=== PATIENT | female | born 1955 | race Caucasian/White ===

== ENCOUNTER → 2016-07-16 | Outpatient (CLI) | payer OTHER ==
[2016-07-16 09:40] LABS: BASOPHILS # (AUTO) 0.02 10*3/UL; BASOPHILS % (AUTO) 0.6 % (0-1); EOSINOPHILS % (AUTO) 0.6 % (0-8); HEMATOCRIT 38.6 % (37.0-47.0); HEMOGLOBIN 12.6 g/dL (12.0-16.0); IMM GRAN % (AUTO) 0 % (0-5); IMM GRAN# (AUTO) 0 10*3/UL; LYMPHOCYTES # (AUTO) 1.06 10*3/uL; LYMPHOCYTES % (AUTO) 30.3 % (10-50); MEAN CORPUSCULAR HEMOGLOBIN 32.1 PG (27-31); MEAN CORPUSCULAR HGB CONC 32.6 g/dL (33-37); MEAN PLATELET VOLUME 9.4 FL (7.4-12.2); MONOCYTES # (AUTO) 0.48 10*3/UL (0.3-0.8); MONOCYTES % (AUTO) 13.7 % (5-15); NEUTROPHILS # (AUTO) 1.92 10*3/UL; NEUTROPHILS % (AUTO) 54.8 % (50-80); RDW COEFFICIENT OF VARIATION 13.8 % (11.5-14.5); RED BLOOD COUNT 3.93 10^6/uL (4.20-5.40)
[2016-07-16 09:45] LABS: PLATELET MORPHOLOGY COMMENT NORMAL MORPHOLOGY (NORM)
[2016-07-16 10:05] LABS: ASPARTATE AMINO TRANSFERASE 29 IU/L (8-39); BILIRUBIN,TOTAL 0.4 mg/dL (0.3-1.2); BLOOD UREA NITROGEN 13 mg/dL (7-22); BUN/CREATININE RATIO 21.66 (6-20); CALCIUM 9.6 mg/dL (8.7-10.7); CHLORIDE 104 meq/L (98-112); CREATININE 0.6 mg/dL (0.50-1.20); EST GLOMERULAR FILTRATION > 60 (>60 ml/min/1.73m(2)); GLUCOSE 83 mg/dL (78-110); POTASSIUM 3.6 meq/L (3.8-5.2); SODIUM 141 meq/L (135-145); TOTAL PROTEIN 6.1 g/dL (6.1-8.0)
== END ==
LOC: LAB 09:01
PROVIDERS: ATTEND Surgery
DX: C50.812 Malignant neoplasm of overlapping sites of left female breast (principal)
CPT/HCPCS: 36415; 80053; 85025; 86300

== ENCOUNTER 2016-07-24 06:52 | Day surgery (SDC) | payer OTHER ==
[~2016-07-24 06:52] MED LIST: LIDOCAINE W/ SODIUM BICARB 0.5 ML SYR ONE; Lactated Ringers 1,000 ML PRIMARY IV ONE; ceFAZolin Inj 2gm (Premix) 50 ML IV ONE
[2016-07-24] MEDS ORDERED: LIDOCAINE W/ SODIUM BICARB 0.5 ML SYR SUBD ONE (09:00)
[2016-07-24] MEDS ORDERED: Lactated Ringers 1,000 ML PRIMARY IV ONE (11:01)
[2016-07-24] MEDS ORDERED: fentaNYL Inj 250 MCG/5 ML VIAL ONE (11:03)
[2016-07-24] MEDS ORDERED: MIDAZOLAM 5 MG/1 ML ONE (11:03)
[2016-07-24] MEDS ORDERED: LIDOCAINE MPF 2% - 5 ML (20 MG/1 ML) ONE (11:04)
[2016-07-24] MEDS ORDERED: Sodium Chloride 0.9% vial 10 ML ONE (11:04)
[2016-07-24] MEDS ORDERED: BUPIVACAINE 0.5% W/ EPI - 10 ML VIAL ONE (11:26)
[2016-07-24] MEDS ORDERED: LIDOCAINE 2% 20 MG/ML - 20 ML VIAL ONE (11:26)
--- NOTE | 2016-07-24 11:31 | DI ---
NEEDLE LOCALIZATION FOR LEFT BREAST BIOPSY, 07/24/2016 8:40 AM: Clinical History: Biopsy proven breast cancer. Previous Exam: 01/04/2016. Between the diagnosis of breast cancer in December of 2015, and now, the david ent has undergone chemotherapy treatment. The tumor clinically is no longer palpable and mammographic ally is not identifiable with certainty. A "time out" session was performed to verify the patient's name and date of prior to informing the patient of the risks and benefits for this procedure. The left breast was prepped with ChloraPrep with Tint. The breast was then positioned for the needle localization procedure in the mammographic machine. A film was obtained for localization. 2, 7 cm long and 2, 9 cm long 21g Kopan's needles were then inserted to bracket the suspected area of interest based on the location of the mass seen on th e study from 01/04/2016. There is a needle marker related to the core biopsy procedure, but this needl e is located quite posteriorly at the 12:00 position and is located within fat tissue. A second film was obtained in an orthogonal position to verify position of the needles. The needles were adjusted a s necessary to be in proximity to the lesion. Prior to deployment of the hook wires, 0.1 cc of methyl julian blue was injected through each needle. The hook wires were then deployed and a final film was obt ained in the same position to verify position of the wires. After placement of the 4 wires but before a methylene blue was injected, the patient experienced an e pisode of vasovagal syncope that was treated by placing the patient in Trendelenburg position and hilary vating her legs. When the patient was returned to the upright position, she again experienced a vasov agal response and the patient was again placed in the intercondylar position. A 100 mL bolus of shonna l saline was then given to the patient and the patient was then able to tolerate completion of the st udy. The patient was discharged to the surgical holding area in stable condition. Reading: Left breast needle localization as above.
[2016-07-24] MEDS ORDERED: ePHEDrine Inj 50 MG/ML AMP ONE (12:02)
[2016-07-24] MEDS ORDERED: DEXAMETHASONE PF 10 MG/1 ML VIAL ONE (12:13)
[2016-07-24] MEDS ORDERED: BUPivacaine Liposome/PF (Exparel) Inj 20ml vial INFIL ONE ×2 (12:15→12:51)
[2016-07-24] MEDS ORDERED: ONDANSETRON 4 MG/2 ML VIAL ONE ×2 (12:18→16:08)
--- NOTE | 2016-07-24 12:58 | DI ---
SENTINEL LYMPH NODE IMAGING OF THE LEFT BREAST, 07/24/2016 10:00 AM: Clinical History: Biopsy proven breast cancer. Previous Related Exams: None at this facility. Software Systems Engineer: Curry Posadas MD Yard Warehouse Worker: None. A "time out" session was performed to verify the patient's name and date of prior to initiatin g this procedure in the Nuclear Medicine Department. The left breast was prepped with Chloraprep with Tint. 1% buffered lidocaine without epinephrine was injected in Sappy's plexus from the 3:00 to 9:00 position along the infra-areaolar margin. A total of 1.0 mCi of unfiltered Tc-99 sulfur colloid was then injected into Sappy's plexus in the same fashion. Anterior imaging was then initiated. 2 sentine l nodes were identified in proximity to the areola, and one is located more distant along the lateral aspect of the breast. The patient was discharged from the X-ray Department to the surgical holding a rustam in stable, unchanged condition. Reading: Successful sentinel node imaging as above.
--- NOTE | 2016-07-24 13:13 | GEN.OPNOTE ---
Operative Note Surgery Date: 07/24/16 Preoperative Diagnosis: Left breast cancer Postoperative Diagnosis: Left breast cancer Procedure: Wire localized left outer quadrantectomy with sentinel node Surgeon: Andrés Suarez MD Anesthesia Provider: Cary Muhammad CRNA Anesthesia Type: General Estimated Blood Loss (mL): 20 Fluids: 2 g of Ancef given preoperatively. LR please see anesthesia notes in EMR Pathology: Left breast quadrantectomy and sentinel node sent. 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 Patient artery see preop operative chemotherapy Findings: Patient initially went to radiology for wire localization and also injection of radionucleotide for sentinel node. Patient is brought in operative room placed supine position given general tracheal anesthesia. Prepped draped sterile fashion. Timeout performed per protocols. I initially localize where it was bleed with a sentinel node using the [facility]. Made a skin incision overlying this. Blunt dissection carried out some fatty piece of fatty tissue that was excised as a did have some radioactivity. It is clear that this was not the sentinel node. We will went back and found the hot sentinel node. We marked counts in vitro X jessica. I completely dissected out the lymph node using electrocautery and hemoclips. Background check showed no further radioactivity. This wound was closed deep tissue with 2-0 Vicryl simple sutures. Skin reapproximated using 4-0 Vicryl continuous running septic restitch. Next made a skin incision in between the medial and lateral wires. Hemostased and left cautery. I then dissected out and brought the superior and inferior wires into the surgical incision. I then completely excised the breast tissue in between the wires. Might be margins all way down to the chest wall. There was some fibroglandular tissue laterally. This is not. Appeared to be grossly cancer. I would at this same the patient had a complete response with the chemotherapy. I then marked the margins accordingly as stated in pathology. The wound was closed with 4-0 Vicryl continuous running septic restitch. There is adequate hemostasis. And no active bleeding was noted at time of the procedure ascending. I did infiltrate 20 mL of Exoprel for postoperative pain control. Steri-Strips are applied to both wounds sterile dressings applied. Patient transferred recovery room in stable condition.
[2016-07-24] MEDS ORDERED: NORMAL SALINE 10 ML SYRINGE FLUSH IVP PRN ×2 (13:16→13:55)
[2016-07-24] MEDS ORDERED: ONDANSETRON 4 MG/2 ML VIAL IVP PRN (13:23)
[2016-07-24] MEDS ORDERED: HYDROcodone-APAP 7.5 MG-325 MG TABLET PO PRN (13:23)
[2016-07-24] MEDS ORDERED: Sodium Chloride 0.9% 1,000 ML PRIMARY IV SCH (13:30)
[2016-07-24] MEDS ORDERED: Ondansetron ODT Tab 8 MG TAB PO PRN (13:55)
[2016-07-24] MEDS ORDERED: ATROPINE SULFATE 0.4 MG/1 ML VIAL IVP PRN (13:55)
[2016-07-24] MEDS ORDERED: Acetaminophen 1000mg Inj 1,000 MG in Premix 1 BAG IV ONE (13:55)
[2016-07-24] MEDS ORDERED: HYDROmorphone 2 MG/1 ML IVP PRN (13:55)
[2016-07-24] MEDS ORDERED: Acetaminophen 1000mg Inj 100 ML IV ONE (13:56)
[2016-07-24] MEDS ORDERED: HYDROmorphone 2 MG/1 ML ONE (13:56)
[2016-07-24] MEDS ORDERED: Lactated Ringers 1,000 ML PRIMARY IV SCH (14:00)
[2016-07-24 14:22] VITALS: RESP 16
[2016-07-24] MEDS ORDERED: oxyCODONE IR Tab 5 MG TAB PO PRN (15:02)
[2016-07-24] MEDS ORDERED: oxyCODONE IR Tab 5 MG TAB PO ONE (15:06)
[2016-07-24 17:11] VITALS: TEMP 96.9
--- NOTE | 2016-07-24 21:14 | DI ---
LEFT BREAST BIOPSY SPECIMEN RADIOGRAPHS, 07/24/2016 1:00 PM: Magnified specimen radiographs were obtained. The radiographs confirm the biopsy excision contains a surgical clip as well as dense tissue. A discrete mass is not visualized. Reading: The specimen does contain the surgical clip in bed and fatty tissue. Dense tissue is present although a discrete mass is not identified. This finding is in agreement with the views of the left breast th at were obtained prior to the needle localization procedure where the previously readily identifiable ovoid lesion was now occult.
== END 2016-07-24 17:05 | disposition home or self-care (01) ==
LOC: SDSC 06:52
PROVIDERS: ATTEND Surgery
DX: C50.412 Malignant neoplasm of upper-outer quadrant of left female breast (principal)
CPT/HCPCS: 19281; 19301; 38525; 38790; 76098; 78195; A4216; A9541; C9290; J0131; J0690; J2704; J3010; J1100; J1170; J2001; J2250; J2405; J7120

== ENCOUNTER → 2017-01-01 | Outpatient (CLI) | payer OTHER ==
--- NOTE | 2017-01-01 14:04 | DI ---
MAMMO DIAGNOSTIC B/L,01/01/2017 1:11 PM: Clinical History: Prior left-sided breast cancer. Previous Exam: January 04, 2016 Findings: CC and MLO views of both breasts are obtained, and demonstrate new postsurgical changes within the le ft upper outer breast consistent with patient's history of a left-sided lumpectomy. A new right-sided chest port is seen. There is no suspicious cluster of microcalcifications. There is significant architectural distortion in the area of the left upper quadrant. There is heterogeneously dense fibroglandular elements. Computer-aided diagnostics were applied. Impression: Postsurgical changes of the left upper outer breast without mammographic evidence of recurrent malign lizeth. BIRADS: 2: Benign findings Recommendations: Annual screening. Note: Breast examination has been discussed and encouraged, and the patient informed to return if the re is any new palpable abnormality in the interval between screening. Overall imaging assessment: Benign findings.
== END ==
LOC: MAMMO 13:08
PROVIDERS: ATTEND Physician Assistant
DX: C50.812 Malignant neoplasm of overlapping sites of left female breast (principal); Z98.890 Other specified postprocedural states
CPT/HCPCS: G0204